=== PATIENT | male | born 2005 | race Two or more races ===

== ENCOUNTER 2024-10-24 12:06 | Emergency (ER) | payer SELFPAY ==
[~2024-10-24] VITALS: Ht 177.8 cm; Wt 52.9 kg
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
[2024-10-24] MEDS: FLUORESCEIN SOD OPTH TEST STRIP ONE (13:33)
[2024-10-24] MEDS: TETRACAINE HCL 0.5% OPTH(EYE) SOLN 4ML EACHEYE ONE (13:33)
[2024-10-24] MEDS: FLUORESCEIN SOD OPTH TEST STRIP EACHEYE ONE (13:34)
[2024-10-24 13:36] VITALS: BP 139/81; PULSE 100; RESP 18; O2SAT 97
== END 2024-10-24 14:57 | disposition left against medical advice (07) ==
LOC: ER 12:06 → EDBD 12:06 → ER 14:57
DX: S05.01XA Injury of conjunctiva and corneal abrasion without foreign body, right eye, initial encounter (principal); W44.8XXA Other foreign body entering into or through a natural orifice, initial encounter; Y93.89 Activity, other specified; Y92.89 Other specified places as the place of occurrence of the external cause; Y99.8 Other external cause status